=== PATIENT | male | born 1980 | race Caucasian/White ===

== ENCOUNTER 2017-05-30 13:27 | Emergency (ER) | payer SELFPAY ==
[~2017-05-30] VITALS: Ht 180.3 cm; Wt 77.1 kg
[~2017-05-30 13:27] MED LIST: COLC1TAB3 PO; NORPTMEDS CO
[2017-05-30] MEDS ORDERED: SODIUM CHLORIDE 0.9% 1,000 ML IV ONE ×2 (13:46)
[2017-05-30] MEDS ORDERED: IOHEXOL 300 MG/ML 100ML BOTTLE IJ ONE (13:49)
[2017-05-30] MEDS ORDERED: KETOROLAC TROMETH 30 MG/ML 1ML VIAL IV ONE (14:00)
[2017-05-30] MEDS ORDERED: ONDANSETRON HCL 4 MG/2 ML VIAL IV ONE (14:00)
[2017-05-30 14:02] VITALS: BP 117/75
[2017-05-30 14:28] LABS: Basophils # (auto) 0 uL; Basophils % (auto) 0.4 % (0.0-2.0); Eosinophils # (auto) 0 uL; Eosinophils % (auto) 0.1 % (0.0-7.0); Hemoglobin 17.5 g/dL (13.5-17.5); Lymphocytes # (auto) 1.3 uL; Lymphocytes % (auto) 13.2 % (10.0-50.0); Mean Corpuscular Hemoglobin 34.4 pg (28.0-32.0); Mean Corpuscular Volume 98.2 fL (80.0-100.0); Monocytes # (auto) 0.7 uL; Monocytes % (auto) 6.8 % (0.0-12.0); Neutrophils % (auto) 79.5 % (37.0-80.0); Nucleated Red Blood Cells % 0.1 %; Platelet Count (auto) 284 10^3/uL (140-450); Red Cell Distribution Width 13.2 % (11.8-14.3); White Blood Cell 10.1 10^3/uL (4.4-10.8)
[2017-05-30 14:58] LABS: Albumin 4.4 g/dL (3.4-5.0); BUN/Creatinine Ratio 11.1; Bilirubin, Total 0.9 mg/dL (0.2-1.0); Potassium 3.2 mmol/L (3.5-5.1); Total Protein 8.5 g/dL (6.4-8.2)
== END 2017-05-30 16:23 | disposition home or self-care (01) ==
LOC: ER 13:27
DX: R10.9 Unspecified abdominal pain (principal); F12.10 Cannabis abuse, uncomplicated; F17.210 Nicotine dependence, cigarettes, uncomplicated
CPT/HCPCS: 36415; 74177; 80053; 85025; 96361; 96374; 96375; 99285; J1885; J2405; Q9967

== ENCOUNTER 2018-02-16 21:41 | Emergency (ER) | payer SELFPAY ==
[~2018-02-16] VITALS: Ht 180.3 cm; Wt 72.6 kg
[2018-02-16 21:54] VITALS: BP 127/90
== END 2018-02-16 22:39 | disposition home or self-care (01) ==
LOC: ER 21:41
DX: S00.03XA Contusion of scalp, initial encounter (principal); F17.210 Nicotine dependence, cigarettes, uncomplicated; F12.10 Cannabis abuse, uncomplicated; Y04.2XXA Assault by strike against or bumped into by another person, initial encounter; Y93.89 Activity, other specified; Y92.89 Other specified places as the place of occurrence of the external cause; Y99.8 Other external cause status
CPT/HCPCS: 70450

== ENCOUNTER 2018-03-02 10:21 | Emergency (ER) | payer OTHER ==
[~2018-03-02] VITALS: Ht 180.3 cm; Wt 77.1 kg
[2018-03-02 10:44] VITALS: BP 104/77
[2018-03-02] MEDS ORDERED: KETOROLAC TROMETH 60MG/2ML VIAL IM ONE (11:15)
== END 2018-03-02 11:31 | disposition home or self-care (01) ==
LOC: ER 10:21
DX: S70.212A Abrasion, left hip, initial encounter (principal); F17.210 Nicotine dependence, cigarettes, uncomplicated; F12.10 Cannabis abuse, uncomplicated; W19.XXXA Unspecified fall, initial encounter; Y93.89 Activity, other specified; Y99.8 Other external cause status; Y92.89 Other specified places as the place of occurrence of the external cause
CPT/HCPCS: 73562; 96372; 99283; J1885

== ENCOUNTER 2019-03-19 18:49 | Emergency (ER) | payer OTHER ==
[~2019-03-19] VITALS: Ht 180.3 cm; Wt 83.9 kg
[2019-03-19 20:24] VITALS: BP 115/70
[2019-03-19] MEDS ORDERED: DexAMETHasone SOD PHOS 10MG/1ML VIAL INJ IM ONE (21:00)
[2019-03-19] MEDS ORDERED: HYDROcodone-ACET 10/325MG TAB PO ONE (21:00)
[2019-03-19] MEDS ORDERED: cefTRIAXone SOD 1,000 MG VL IM ONE (21:00)
== END 2019-03-19 21:46 | disposition home or self-care (01) ==
LOC: ER 18:51
DX: J06.9 Acute upper respiratory infection, unspecified (principal); F17.210 Nicotine dependence, cigarettes, uncomplicated
CPT/HCPCS: 96372; 99283; J0696; J1100

== ENCOUNTER → 2019-06-22 | Emergency (ER) | payer OTHER ==
[~2019-06-22] VITALS: Ht 180.3 cm; Wt 74.8 kg
[~2019-06-22] MED LIST changes: +HYDROmorphone HCL 2 MG/ML VL IM ONE; +LORazepam 0.5 MG TAB PO ONE; +ONDANSETRON HCL 4 MG/2 ML VIAL IM ONE
[2019-06-22 07:27] VITALS: BP 177/72
== END | disposition home or self-care (01) ==
LOC: ER 07:16
DX: S92.002A Unspecified fracture of left calcaneus, initial encounter for closed fracture (principal); F43.10 Post-traumatic stress disorder, unspecified; F17.210 Nicotine dependence, cigarettes, uncomplicated; Z79.899 Other long term (current) drug therapy; W10.9XXA Fall (on) (from) unspecified stairs and steps, initial encounter; Y93.89 Activity, other specified; Y92.89 Other specified places as the place of occurrence of the external cause; Y99.8 Other external cause status
CPT/HCPCS: 29515; 73610; 96372; 99284; J1170; J2405